=== PATIENT | male | born 1965 | race Caucasian/White ===

== ENCOUNTER 2017-11-16 22:28 | Emergency (ER) | payer OTHER ==
[~2017-11-16] VITALS: Ht 193 cm; Wt 117.9 kg
[2017-11-16 22:55] LABS: ABSOLUTE EOSINOPHILS 0.1 thou/uL (0.0-0.7); ABSOLUTE MONOCYTES 0.6 thou/uL (0.0-1.2); ABSOLUTE NEUTROPHILS 4.5 thou/uL (1.6-8.1); BASOPHILS 0.3 %; EOSINOPHILS 1.3 %; HEMATOCRIT 46.7 % (42.0-52.0); HEMOGLOBIN 15.8 gm/dL (14.0-18.0); LYMPHOCYTES 36.2 %; MCH 30.1 pg (26.0-34.0); MCHC 33.9 g/dL (28.0-37.0); MCV 88.9 fL (80.0-100.0); MONOCYTES 7.6 %; MPV 9.2 fl. (7.2-11.1); NUCLEATED RBCS 0 /100WBC; PLATELET COUNT* 198 thou/uL (150-400); POLYS 54.6 %; RBC 5.25 mil/uL (4.50-6.00); RDW-CV 13.9 % (10.5-14.5); WBC 8.2 thou/uL (4.0-11.0)
[2017-11-16 23:01] LABS: ANION GAP 9 mmol/L (7-16); BUN 16 mg/dL (7-18); CALCIUM 8.8 mg/dL (8.5-10.1); CHLORIDE 104 mmol/L (98-107); CO2 31 mmol/L (21-32); CREATININE 1.4 mg/dL (0.6-1.3); GLUCOSE 129 mg/dL (70-99); POTASSIUM 4.2 mmol/L (3.5-5.1); SODIUM 144 mmol/L (136-145)
[2017-11-16 23:08] LABS: ALKALINE PHOSPHATASE 79 U/L (46-116); LIPASE 138 U/L (73-393); SGOT 38 U/L (15-37); SGPT 60 U/L (30-65); TROPONIN-I LEVEL <0.06 ng/mL (<0.06)
[2017-11-16] MEDS ORDERED: ZOFRAN ODT4 MG PO (23:51)
[2017-11-16] MEDS ORDERED: PRILOSEC 20 MG20 MG PO (23:51)
[2017-11-16] MEDS ORDERED: PEPCID20 MG PO (23:51)
[2017-11-17 00:51] LABS: URINE BILIRUBIN NEGATIVE (Negative); URINE BLOOD NEGATIVE (Negative); URINE CLARITY CLEAR; URINE COLOR YELLOW; URINE GLUCOSE-RANDOM NEGATIVE (Negative); URINE KETONES NEGATIVE (Negative); URINE LEUKOCYTES-REFLEX NEGATIVE (Negative); URINE NITRITE-REFLEX NEGATIVE (Negative); URINE PROTEIN NEGATIVE (Negative); URINE UROBILINOGEN 0.2 E.U./dl (0.2-1.0)
[2017-11-17 00:58] VITALS: BP 130/78
--- NOTE | 2017-11-17 12:52 | EKG ---
[place] [address] ELECTROCARDIOGRAM REPORT Name: COLE DILL [id number] Admission: 11/16/17 Attend Phys: Discharge: 11/17/17 Date of : 67 Report #: [id number] THIS REPORT FOR: //name// [facility] ED Test Date: 2017-11-16 Test Time: 22:46:39 Pat Name: COLE DILL Department: Room: Gender: M Equipment Sales Specialist: MIMI : 1965 Requested By: Concepcion Quiñonez Order Number: [id number] MD: John Rock Measurements Intervals [place] Rate: 44 P: 9 [place]: 177 QRS: 44 QRSD: 105 T: 39 QT: 451 QTc: 386 Interpretive Statements Sinus bradycardia Probable left ventricular hypertrophy Baseline wander in lead(s) V1 No previous ECG available for comparison Electronically Signed On 11-17-2017 12:52:36 ARTILLERY SPECIALIST by John Rock [email or web address] <ELECTRONICALLY SIGNED> By: John Rock MD, [facility] 11/17/17 1252 [id number] 45 John Rock MD, FACC /EPI
== END 2017-11-17 00:58 | disposition home or self-care (01) ==
LOC: M.ERS 22:28
PROVIDERS: Physician Assistant
DX: R10.13 Epigastric pain (principal); R00.1 Bradycardia, unspecified